=== PATIENT | male | born 1945 | race Caucasian/White ===

== ENCOUNTER 2023-11-27 14:32 | Inpatient (IN) | payer MEDICARE, OTHER ==
[~2023-11-27] VITALS: Ht 188 cm; Wt 98.1 kg
[~2023-11-27 14:32] MED LIST: ALBU0.084 NEB; AMIT100T6 PO; ASPI-498 OR; CALC0.5C PO; CHLO25TA2 PO; CHOL400D PO; CYAN500L4 PO; DILT-11 PO; GABA-339 PO; LOSA-535 PO; MAGN400C3 PO; MESA400T OR; MONT-8 PO; POTA-36 PO; RANI300C7 PO; RANITAB30 PO; ROSU20TA14 PO; TERA2CAP79 PO; [UNRECOGNIZED DRUG - CODE] PO; insulin NPH
[2023-11-27] MEDS: ACETAMINOPHEN 325 MG TAB PO ONE (15:45)
[2023-11-27 15:58] LABS: Basophils # (auto) 0 10 ^3/uL (0-0.2); Basophils % (auto) 0.3 % (0.0-2.0); Eosinophils # (auto) 0.1 10 ^3/uL (0-0.8); Eosinophils % (auto) 1.2 % (0.0-7.0); Hematocrit 34.3 % (41.0-53.0); Hemoglobin 11.4 g/dL (13.5-17.5); Lymphocytes # (auto) 0.2 10 ^3/uL (0.4-5.4); Lymphocytes % (auto) 2.4 % (10.0-50.0); Mean Corpuscular Hemoglobin 30.7 pg (28.0-32.0); Mean Corpuscular Hgb Conc. 33.2 g/dL (32.0-36.0); Mean Corpuscular Volume 92.6 fL (80.0-100.0); Monocytes # (auto) 0.5 10 ^3/uL (0-1.3); Monocytes % (auto) 6.1 % (0.0-12.0); Neutrophils # (auto) 7.7 10 ^3/uL (1.6-8.6); Red Blood Cells 3.71 10^6/uL (4.5-5.90); Red Cell Distribution Width 17.3 % (11.8-14.3); White Blood Cell 8.5 10^3/uL (4.4-10.8)
[2023-11-27 16:54] LABS: Lactic Acid w/Reflex 2.3 mmol/L (0.4-2.0)
[2023-11-27] MEDS: SODIUM CHLORIDE 0.9% 1,000 ML IV ONE (17:00)
[2023-11-27 17:20] LABS: Albumin 4.2 g/dL (3.2-4.8); Alkaline Phosphatase 47 U/L (46-116); Anion Gap 8 (5-15); Aspartate Aminotransferase < 8 U/L (13-40); BUN/Creatinine Ratio 6.1 (10.0-20.0); Bilirubin, Total 0.7 mg/dL (0.2-1.0); Blood Urea Nitrogen 38 mg/dL (9-23); Calcium 9.5 mg/dL (8.7-10.4); Carbon Dioxide 31 mmol/L (20-30); Chloride 97 mmol/L (98-107); Glucose 90 mg/dL (74-106); Potassium 4.3 mmol/L (3.5-5.1); Sodium 136 mmol/L (136-145); Total Protein 6.8 g/dL (5.7-8.2)
[2023-11-27 17:27] VITALS: RESP 20; O2SAT 97
[2023-11-27 18:04] LABS: Alanine Aminotransferase < 9 U/L (7-40)
[2023-11-27] MEDS: ENOXAPARIN SOD 100 MG/1 ML SYRINGE SC ONE (18:36)
[2023-11-27 18:56] LABS: Urine Bacteria None Seen /hpf (None Seen)
[2023-11-27 19:30] VITALS: RESP 17; O2SAT 96
[2023-11-27 19:31] LABS: Urine Blood Negative /uL (Negative); Urine Clarity Clear (Clear); Urine Color Light-Yellow (Yellow); Urine Protein, UAD 3+ (Negative); Urine Specific Gravity 1.014 (1.001-1.035); Urine Urobilinogen Normal (Negative); Urine WBC 1 /hpf (0 - 3)
[2023-11-27 19:46] LABS: Amphetamine Screen, Urine Neg (NEGATIVE); Barbiturate Scree,Urine Neg (NEGATIVE); Benzodiazephine Screen, Urine Neg (NEGATIVE); Cocaine Screen, Urine Neg (NEGATIVE)
[2023-11-27 19:47] LABS: Cannabinoid Screen, Urine Neg (NEGATIVE); Opiate Scree,Urine Neg (NEGATIVE); Phencyclidine Screen, Urine Neg (NEGATIVE)
[2023-11-27] MEDS: ATORVASTATIN 20 MG TAB PO SCH (22:00)
[2023-11-27] MEDS ORDERED: DEXTROSE (50%) 50ML SYRG IV PRN (22:00)
[2023-11-27] MEDS ORDERED: ALBUTEROL SULF 2.5 MG/0.5ML(0.5%) NEB SOLN NEB PRN (22:00)
[2023-11-27] MEDS ORDERED: MORPHINE SULFATE INJ 2 MG/ml SYRG IV PRN (22:00)
[2023-11-27] MEDS ORDERED: ONDANSETRON HCL 4 MG/2 ML VIAL IV PRN (22:00)
[2023-11-27] MEDS: ACCU-CHEK COMFORT CURVE STRIP VI SCH (22:00)
[2023-11-27] MEDS ORDERED: NITROGLYCERIN 0.4 MG SL TAB SL PRN (22:00)
[2023-11-27] MEDS: InsuLIN REG 1unit/0.01ml Soln (100units/ml) SC SCH (22:00)
[2023-11-27 22:10] VITALS: BP 101/82; PULSE 85; RESP 20; TEMP 100.9; O2SAT 95
[2023-11-28] VITALS (9 sets, daily range): BP systolic 119–120; BP diastolic 60–61; PULSE 56–88; RESP 18–22; TEMP 97.1–97.9; O2SAT 87–98
[2023-11-28 05:18] LABS: Basophils # (auto) 0 10 ^3/uL (0-0.2); Basophils % (auto) 0.3 % (0.0-2.0); Eosinophils # (auto) 0.1 10 ^3/uL (0-0.8); Eosinophils % (auto) 0.9 % (0.0-7.0); Hematocrit 31.3 % (41.0-53.0); Hemoglobin 10.1 g/dL (13.5-17.5); Lymphocytes # (auto) 0.7 10 ^3/uL (0.4-5.4); Lymphocytes % (auto) 8.5 % (10.0-50.0); Mean Corpuscular Hemoglobin 29.9 pg (28.0-32.0); Mean Corpuscular Hgb Conc. 32.2 g/dL (32.0-36.0); Mean Corpuscular Volume 92.9 fL (80.0-100.0); Monocytes # (auto) 0.9 10 ^3/uL (0-1.3); Monocytes % (auto) 11.9 % (0.0-12.0); Neutrophils # (auto) 6.1 10 ^3/uL (1.6-8.6); Neutrophils % (auto) 78.4 % (37.0-80.0); Red Blood Cells 3.37 10^6/uL (4.5-5.90); Red Cell Distribution Width 17.2 % (11.8-14.3); White Blood Cell 7.8 10^3/uL (4.4-10.8)
[2023-11-28 05:30] LABS: Chloride 99 mmol/L (98-107); Potassium 4.6 mmol/L (3.5-5.1); Sodium 136 mmol/L (136-145)
[2023-11-28 05:38] LABS: Glucose 83 mg/dL (74-106)
[2023-11-28 05:39] LABS: Alkaline Phosphatase 42 U/L (46-116); BUN/Creatinine Ratio 6.5 (10.0-20.0); Blood Urea Nitrogen 46 mg/dL (9-23)
[2023-11-28 05:40] LABS: Alanine Aminotransferase 13 U/L (7-40); Albumin 4.1 g/dL (3.2-4.8); Aspartate Aminotransferase 17 U/L (13-40)
[2023-11-28 05:41] LABS: Bilirubin, Total 0.5 mg/dL (0.2-1.0); Total Protein 6.6 g/dL (5.7-8.2)
[2023-11-28 06:53] LABS: Anion Gap 11 (5-15); Carbon Dioxide 26 mmol/L (20-30)
[2023-11-28] MEDS: ASPirin 81 mg TAB PO ONE (09:54)
[2023-11-28] MEDS: CLOPIDOGREL BISULFATE 75 MG TAB PO SCH (09:54)
[2023-11-28] MEDS ORDERED: ASPirin 81 mg TAB PO SCH (10:00)
[2023-11-28 10:18] LABS: Triglycerides 75 mg/dL (< 150)
[2023-11-28 10:19] LABS: LDL Cholesterol 34 mg/dL (< 100)
[2023-11-28 10:20] LABS: HDL Cholesterol 32 mg/dL (40-59)
[2023-11-28 10:21] LABS: Cholesterol 82 mg/dL (< 200)
[2023-11-28 11:21] LABS: Free T4 (Free Thyroxine) 0.83 ng/dL (0.89-1.76)
[2023-11-28 11:22] LABS: Folate (Folic Acid) > 24.00 ng/mL (>5.38)
[2023-11-28] MEDS: cefTRIAXone 1GM/50ML D5W 50 ML IV SCH (18:17)
[2023-11-28] MEDS: DexAMETHasone SOD PHOS 10MG/1ML VIAL INJ IV SCH (20:39)
[2023-11-28 21:52] LABS: INR 1.23 (0.9-1.15); Prothrombin Time 12.8 sec (9.3-11.8)
[2023-11-28] MEDS: ATORVASTATIN 20 MG TAB PO SCH (22:06)
[2023-11-29] VITALS (8 sets, daily range): BP systolic 128–157; BP diastolic 60–81; PULSE 66–82; RESP 15–16; TEMP 97–98; O2SAT 86–100
[2023-11-29] MEDS: SODIUM CHL 0.9% 1000 ML BAG XX ONE (07:00)
[2023-11-29] MEDS: ASPirin 81 mg TAB PO SCH (08:37)
[2023-11-29] MEDS ORDERED: GABA-1250 PO (08:44)
[2023-11-29] MEDS ORDERED: FAMO-12 PO (08:44)
[2023-11-29] MEDS ORDERED: B-CO1TAB24 PO (08:44)
[2023-11-29] MEDS ORDERED: SEVE800T8 PO (08:44)
[2023-11-29] MEDS ORDERED: TAMS0.4C36 PO (08:44)
[2023-11-29] MEDS ORDERED: CLOP75TA70 PO (08:44)
[2023-11-29] MEDS ORDERED: ATOR-47 PO (08:44)
[2023-11-29] MEDS ORDERED: BALS750C6 PO (08:44)
[2023-11-29] MEDS ORDERED: LOSA-534 PO (08:44)
[2023-11-29] MEDS ORDERED: DICL1GEL73 TD (08:47)
[2023-11-29] MEDS ORDERED: FLUT1AER7 IN (08:47)
[2023-11-29] MEDS ORDERED: ALBU2TAB11 PO (08:47)
[2023-11-29] MEDS ORDERED: TIOT17SP IN (08:47)
[2023-11-29 09:35] LABS: Basophils # (auto) 0 10 ^3/uL (0-0.2); Eosinophils # (auto) 0 10 ^3/uL (0-0.8); Hemoglobin 10.2 g/dL (13.5-17.5); Lymphocytes # (auto) 0.7 10 ^3/uL (0.4-5.4); Lymphocytes % (auto) 12.3 % (10.0-50.0); Mean Corpuscular Hemoglobin 29.9 pg (28.0-32.0); Mean Corpuscular Hgb Conc. 31.8 g/dL (32.0-36.0); Mean Corpuscular Volume 94.1 fL (80.0-100.0); Monocytes # (auto) 0.3 10 ^3/uL (0-1.3); Monocytes % (auto) 4.7 % (0.0-12.0); Neutrophils # (auto) 4.4 10 ^3/uL (1.6-8.6); Red Blood Cells 3.41 10^6/uL (4.5-5.90); Red Cell Distribution Width 17.1 % (11.8-14.3); White Blood Cell 5.3 10^3/uL (4.4-10.8)
[2023-11-29 09:53] LABS: Alanine Aminotransferase 16 U/L (7-40); Albumin 4.2 g/dL (3.2-4.8); Alkaline Phosphatase 40 U/L (46-116); Anion Gap 14 (5-15); Aspartate Aminotransferase 32 U/L (13-40); BUN/Creatinine Ratio 7.7 (10.0-20.0); Bilirubin, Total 0.4 mg/dL (0.2-1.0); Calcium 9.7 mg/dL (8.5-10.1); Carbon Dioxide 24 mmol/L (20-30); Chloride 99 mmol/L (98-107); Glucose 147 mg/dL (74-106); Potassium 4.8 mmol/L (3.5-5.1); Sodium 137 mmol/L (136-145); Total Protein 7.1 g/dL (5.7-8.2)
[2023-11-29 10:07] LABS: Blood Urea Nitrogen 66 mg/dL (9-23)
[2023-11-29] MEDS: LORazepam 2MG/ML-1ML VIAL IV ONE (15:15)
[2023-11-29] MEDS: METOPROLOL TARTRATE 25 MG TAB PO SCH (22:00)
[2023-11-29] MEDS: ATORVASTATIN 20 MG TAB PO SCH (22:00)
[2023-11-29] MEDS: LORazepam 2MG/ML-1ML VIAL IV PRN (23:38)
[2023-11-30] VITALS (10 sets, daily range): BP systolic 147–181; BP diastolic 57–77; PULSE 57–83; RESP 19–21; TEMP 97.5–98.3; O2SAT 90–97
[2023-11-30 10:26] LABS: Basophils # (auto) 0 10 ^3/uL (0-0.2); Eosinophils # (auto) 0 10 ^3/uL (0-0.8); Hematocrit 32.2 % (41.0-53.0); Hemoglobin 10.5 g/dL (13.5-17.5); Lymphocytes # (auto) 0.5 10 ^3/uL (0.4-5.4); Lymphocytes % (auto) 7.1 % (10.0-50.0); Mean Corpuscular Hemoglobin 30.1 pg (28.0-32.0); Mean Corpuscular Hgb Conc. 32.5 g/dL (32.0-36.0); Mean Corpuscular Volume 92.7 fL (80.0-100.0); Monocytes # (auto) 0.3 10 ^3/uL (0-1.3); Monocytes % (auto) 4.3 % (0.0-12.0); Neutrophils # (auto) 6.6 10 ^3/uL (1.6-8.6); Neutrophils % (auto) 88.6 % (37.0-80.0); Red Blood Cells 3.48 10^6/uL (4.5-5.90); Red Cell Distribution Width 16.9 % (11.8-14.3); White Blood Cell 7.5 10^3/uL (4.4-10.8)
[2023-11-30] MEDS: LISINOPRIL 5 MG TAB PO SCH ×2 (10:41→13:57)
[2023-11-30 10:43] LABS: Alanine Aminotransferase 19 U/L (7-40); Albumin 3.9 g/dL (3.2-4.8); Alkaline Phosphatase 35 U/L (46-116); Anion Gap 10 (5-15); Aspartate Aminotransferase 27 U/L (13-40); BUN/Creatinine Ratio 8.5 (10.0-20.0); Bilirubin, Total 0.4 mg/dL (0.2-1.0); Calcium 9.6 mg/dL (8.5-10.1); Carbon Dioxide 27 mmol/L (20-30); Chloride 102 mmol/L (98-107); Glucose 142 mg/dL (74-106); Potassium 4.6 mmol/L (3.5-5.1); Sodium 139 mmol/L (136-145); Total Protein 6.6 g/dL (5.7-8.2)
[2023-11-30] MEDS: ACETAMINOPHEN 325 MG TAB PO PRN (10:49)
[2023-11-30 11:02] LABS: Blood Urea Nitrogen 55 mg/dL (9-23)
[2023-11-30] MEDS: LORazepam 2MG/ML-1ML VIAL IV ONE (14:35)
[2023-11-30] MEDS: FUROSEMIDE 100 MG/10ML VIAL IV ONE (16:31)
[2023-12-01] VITALS (9 sets, daily range): BP systolic 143–178; BP diastolic 71–89; PULSE 61–77; RESP 16–20; TEMP 97.6–98.3; O2SAT 94–97
[2023-12-01] MEDS ORDERED: SODIUM CHL 0.9% 1000 ML BAG XX ONE (07:00)
[2023-12-01] MEDS: HALOPERIDOL LACTATE 5 MG/ML INJ VIAL IM PRN (08:43)
[2023-12-01] MEDS ORDERED: HALOPERIDOL LACTATE 5 MG/ML INJ VIAL IV PRN (10:00)
[2023-12-01] MEDS ORDERED: HALOPERIDOL LACTATE 5 MG/ML INJ VIAL IM PRN (10:30)
[2023-12-01 10:51] LABS: Basophils # (auto) 0 10 ^3/uL (0-0.2); Basophils % (auto) 0.1 % (0.0-2.0); Eosinophils # (auto) 0 10 ^3/uL (0-0.8); Hematocrit 34.2 % (41.0-53.0); Lymphocytes # (auto) 0.6 10 ^3/uL (0.4-5.4); Lymphocytes % (auto) 6.1 % (10.0-50.0); Mean Corpuscular Hemoglobin 29.9 pg (28.0-32.0); Mean Corpuscular Hgb Conc. 32.2 g/dL (32.0-36.0); Mean Corpuscular Volume 92.8 fL (80.0-100.0); Monocytes # (auto) 0.5 10 ^3/uL (0-1.3); Monocytes % (auto) 5.2 % (0.0-12.0); Neutrophils # (auto) 8.9 10 ^3/uL (1.6-8.6); Neutrophils % (auto) 88.6 % (37.0-80.0); Nucleated Red Blood Cells % 0.1 %; Red Blood Cells 3.68 10^6/uL (4.5-5.90); Red Cell Distribution Width 17.1 % (11.8-14.3)
[2023-12-01 11:12] LABS: Alanine Aminotransferase 29 U/L (7-40); Albumin 4.3 g/dL (3.2-4.8); Alkaline Phosphatase 43 U/L (46-116); Anion Gap 13 (5-15); Aspartate Aminotransferase 23 U/L (13-40); BUN/Creatinine Ratio 10.2 (10.0-20.0); Bilirubin, Total 0.4 mg/dL (0.2-1.0); Blood Urea Nitrogen 79 mg/dL (9-23); Carbon Dioxide 24 mmol/L (20-30); Chloride 100 mmol/L (98-107); Glucose 153 mg/dL (74-106); Potassium 4.4 mmol/L (3.5-5.1); Sodium 137 mmol/L (136-145)
[2023-12-01 11:13] LABS: Total Protein 7.1 g/dL (5.7-8.2)
[2023-12-01] MEDS: LOSARTAN POTASSIUM 50 MG TAB PO SCH (11:16)
[2023-12-01] MEDS: NICOTINE 21MG/24 HR TOPICAL PATCH TD SCH (13:05)
[2023-12-01] MEDS: AMPICILLIN INJ 1 GM in SODIUM CHL 0.9% 100 ML IV ONE (17:16)
[2023-12-01] MEDS ORDERED: EPOETIN ALFA-EPBX 4,000 UNIT/ML VIAL SC ONE (21:00)
[2023-12-01] MEDS: AMPICILLIN INJ 1 GM in SODIUM CHL 0.9% 100 ML IV SCH (23:15)
[2023-12-02 01:00] VITALS: BP 156/86; PULSE 67; RESP 17; TEMP 97.7; O2SAT 96
[2023-12-02 05:00] VITALS: BP 152/72; PULSE 57; RESP 16; TEMP 97.9; O2SAT 95
[2023-12-02 06:14] LABS: Basophils # (auto) 0 10 ^3/uL (0-0.2); Eosinophils # (auto) 0 10 ^3/uL (0-0.8); Hematocrit 33.6 % (41.0-53.0); Lymphocytes # (auto) 0.8 10 ^3/uL (0.4-5.4); Lymphocytes % (auto) 6.2 % (10.0-50.0); Mean Corpuscular Hemoglobin 30.1 pg (28.0-32.0); Mean Corpuscular Hgb Conc. 32.7 g/dL (32.0-36.0); Monocytes # (auto) 1.1 10 ^3/uL (0-1.3); Monocytes % (auto) 8.6 % (0.0-12.0); Neutrophils # (auto) 11.3 10 ^3/uL (1.6-8.6); Neutrophils % (auto) 85.2 % (37.0-80.0); Red Blood Cells 3.65 10^6/uL (4.5-5.90); White Blood Cell 13.3 10^3/uL (4.4-10.8)
[2023-12-02 06:23] LABS: Alanine Aminotransferase 40 U/L (7-40); Albumin 3.9 g/dL (3.2-4.8); Alkaline Phosphatase 48 U/L (46-116); Anion Gap 12 (5-15); Aspartate Aminotransferase 28 U/L (13-40); BUN/Creatinine Ratio 10.6 (10.0-20.0); Calcium 9.6 mg/dL (8.7-10.4); Carbon Dioxide 25 mmol/L (20-30); Chloride 100 mmol/L (98-107); Glucose 120 mg/dL (74-106); Magnesium 2.4 mg/dL (1.6-2.6); Potassium 4.3 mmol/L (3.5-5.1); Sodium 137 mmol/L (136-145)
[2023-12-02 06:24] LABS: Bilirubin, Total 0.3 mg/dL (0.2-1.0); Phosphorus 6.6 mg/dL (2.4-5.1); Total Protein 6.5 g/dL (5.7-8.2)
[2023-12-02 06:25] LABS: INR 1.13 (0.9-1.15); Partial Thromboplastin Time 25.6 SEC (24.5-34.5); Prothrombin Time 11.9 sec (9.3-11.8)
[2023-12-02] MEDS ORDERED: SODIUM CHL 0.9% 1000 ML BAG XX ONE (07:00)
[2023-12-02 07:02] LABS: Blood Urea Nitrogen 88 mg/dL (9-23)
[2023-12-02 08:00] VITALS: PULSE 58
[2023-12-02 08:36] VITALS: BP 121/58; PULSE 57; RESP 18; TEMP 97.6; O2SAT 97
[2023-12-02 08:48] LABS: Hepatitis B Surface Antigen Negative (Negative)
[2023-12-02 09:09] LABS: Hepatitis A Ab IgM Negative
[2023-12-02 09:10] LABS: Hepatitis B Core IgM Negative; Hepatitis C Antibody Negative (Negative)
[2023-12-02] MEDS: FUROSEMIDE 20 MG/2 ML VIAL IV SCH (09:51)
[2023-12-02] MEDS ORDERED: NICOTINE 21MG/24 HR TOPICAL PATCH TD SCH (10:00)
[2023-12-02] MEDS: hydrALAZINE HCL 20 MG/ML VL IV PRN (11:58)
[2023-12-02 12:00] VITALS: BP 151/65; PULSE 56; RESP 18; TEMP 97.8; O2SAT 95
[2023-12-02 15:20] VITALS: O2SAT 95
== END 2023-12-02 16:58 | disposition left against medical advice (07) | DRG 97 ==
LOC: EDBD 14:32 → ER 14:32 → TELE 21:56 → TELE-E-ADS 11-28 15:14 → TELE-CENTR 11-28 16:15
PROVIDERS: ADMIT Internal Medicine; ATTEND Internal Medicine
PROC: 5A1D70Z Performance of Urinary Filtration, Intermittent, Less than 6 Hours Per Day (ICD-10-PCS; principal; 2023-11-29)
DX: G03.9 Meningitis, unspecified (principal); G93.41 Metabolic encephalopathy; I63.9 Cerebral infarction, unspecified; I21.A1 Myocardial infarction type 2; N18.6 End stage renal disease; J96.21 Acute and chronic respiratory failure with hypoxia; I50.23 Acute on chronic systolic (congestive) heart failure; I13.2 Hypertensive heart and chronic kidney disease with heart failure and with stage 5 chronic kidney disease, or end stage renal disease; G93.1 Anoxic brain damage, not elsewhere classified; Z99.2 Dependence on renal dialysis; E11.22 Type 2 diabetes mellitus with diabetic chronic kidney disease; D63.1 Anemia in chronic kidney disease; I27.20 Pulmonary hypertension, unspecified; I50.82 Biventricular heart failure; Z53.29 Procedure and treatment not carried out because of patient's decision for other reasons; E78.5 Hyperlipidemia, unspecified; J44.9 Chronic obstructive pulmonary disease, unspecified; I25.10 Atherosclerotic heart disease of native coronary artery without angina pectoris; K21.9 Gastro-esophageal reflux disease without esophagitis; N40.0 Benign prostatic hyperplasia without lower urinary tract symptoms; I44.0 Atrioventricular block, first degree; Z95.1 Presence of aortocoronary bypass graft; Z88.8 Allergy status to other drugs, medicaments and biological substances; Z86.73 Personal history of transient ischemic attack (TIA), and cerebral infarction without residual deficits; Z87.891 Personal history of nicotine dependence; Z79.82 Long term (current) use of aspirin; Z79.899 Other long term (current) drug therapy; Z79.02 Long term (current) use of antithrombotics/antiplatelets; Z91.199 Patient's noncompliance with other medical treatment and regimen due to unspecified reason; Z82.49 Family history of ischemic heart disease and other diseases of the circulatory system; Z95.5 Presence of coronary angioplasty implant and graft
CPT/HCPCS: 36415; 36600; 70450; 71045; 76705; 80053; 80061; 80074; 80307; 80320; 81001; 82140; 82270; 82607; 82746; 82805; 82962; 83036; 83605; 83735; 83880; 84100; 84439; 84443; 84484; 85025; 85610; 85730; 86141; 87040; 87081; 87086; 87088; 87186; 90935; 93005; 93306; 96360; 96372; 97163; 99291; G0378; J1100; J1642; J1815

== ENCOUNTER 2024-06-23 07:26 | Inpatient (IN) | payer OTHER, MEDICARE ==
[~2024-06-23] VITALS: Ht 188 cm; Wt 99.1 kg
[~2024-06-23 07:26] MED LIST changes: +ALBU2TAB11 PO; +ATOR-47 PO; +B-CO1TAB24 PO; +BALS750C6 PO; +CLOP75TA70 PO; +DICL1GEL73 TD; +FAMO-12 PO; +FLUT1AER7 IN; +GABA-1250 PO; +LOSA-534 PO; +SEVE800T8 PO; +TAMS0.4C39 PO; +TIOT17SP IN
--- NOTE | 2024-06-23 07:41 | ED.PDOC ---
History of Present Illness HPI Comments 79-year-old male presents with a chief complaint of SOB x 0400 with associated generalized weakness. Patient states that he normally is on 2L of home oxygen, but woke up at 0400 this morning and was weak and SOB. Patient mentions that he noticed that his oxygen hose was disconnected and he does not know for how long it was. Patient is bradycardic at 42 BPM and hypotensive at 73/48. Patient is normally on 2L and is currently sating at 93% on 2L. No other symptoms or modifying factors present at this time. Chief Complaint: Low Blood Pressure Time Seen by MD: 07:32 Primary Care Provider: UNKNOWN Reviewed Notes: Medications, Allergies Allergies: Coded Allergies: Atenolol (Unverified Allergy, Severe, 10/22/14) Benzonatate (Unverified Allergy, Severe, 10/22/14) Fosinopril (Unverified Allergy, Severe, 10/22/14) Home Meds Reported Medications Diclofenac Sodium (Topical) (Diclofenac Sodium) 1 % Gel, 1 % TD, GEL 11/29/23 Albuterol Sulfate (Albuterol Sulfate) 2 Mg Tab, 2 MG PO Q6HP PRN for SHORTNESS OF BREATH, MG 11/29/23 Tiotropium Brooks Monohydrate (Spiriva Respimat) 2.5 Mcg/Act Spr, 2.5 MCG IN, SPRAY 11/29/23 Fluticasone-Salmeterol (Wixela Inhub 500-50 Mcg/Dose) 1 Aer Aer, 1 AER IN, AER 11/29/23 Gabapentin (Gabapentin) 300 Mg Cap, 300 MG PO DAILY for 30 Days, MG 11/29/23 B-Complex W/ C & Folic Acid (Renal Vitamin 0.8 mg) 1 Tab Tab, 1 TAB PO HS, TAB 11/29/23 Clopidogrel Bisulfate (CLOPIDOGREL) 75 Mg Tab, 75 MG PO DAILY for 30 Days, MG 11/29/23 Tamsulosin Hcl (Tamsulosin Hcl) 0.4 Mg Cap, 0.4 MG PO BID for 30 Days, MG 11/29/23 Sevelamer Carbonate (Renvela) 800 Mg Tab, 1600 MG PO TIDWMEALS, TAB 11/29/23 Losartan Potassium (Losartan Potassium) 50 Mg Tab, 50 MG PO DAILY for 30 Days, MG 11/29/23 Atorvastatin Calcium (ATORVASTATIN CALCIUM) 80 Mg Tab, 1 TAB PO DAILY, #30 TAB 5 Refills 11/29/23 Famotidine (Famotidine) 20 Mg Tab, 10 MG PO HS for 30 Days, MG 11/29/23 Balsalazide Disodium (Balsalazide Disodium) 750 Mg Cap, 750 MG PO BID, CAP 11/29/23 Albuterol Sulfate (Albuterol Sulfate) 0.083 % Neb, 1 VIAL NEB Q4HPRN, VIAL 10/22/14 Hydrocodone-Acetaminophen (Hydrocodone/Acetaminophen) 1 Tab Tab, 1 TAB PO TID PRN for pain, TAB 10/22/14 Amitriptyline Hcl (Amitriptyline Hcl) 100 Mg Tab, 100 MG PO QPM, TAB 10/22/14 Rosuvastatin Calcium (Crestor) 20 Mg Tab, 1 TAB PO DAILY, TAB 10/22/14 Montelukast Sodium (MONTELUKAST SODIUM) 10 Mg Tab, 1 TAB PO DAILY, TAB 10/22/14 Terazosin Hcl (Terazosin Hcl) 2 Mg Cap, 1 CAP PO QPM, CAP 10/22/14 Aspirin (ASPIRIN 81) 81 Mg Tab, 81 MG OR DAILY, TAB 10/22/14 Mesalamine (ASACOL) 400 Mg Tab, 800 MG OR TID, TAB 10/22/14 Gabapentin (Gabapentin) 600 Mg Tab, 1 TAB PO TID, TAB 10/22/14 Cholecalciferol (VITAMIN D) 400 Unit Boni, 1000 UNIT PO DAILY, BONI 10/22/14 Magnesium Oxide (Mg Supplement (MAGNESIUM) 400 Mg Cap, 400 MG PO DAILY, CAP 10/22/14 Potassium Chloride (POTASSIUM CHLORIDE CR) 10 Meq Tb, 1 TAB PO DAILY, TAB 10/22/14 Cyanocobalamin (Vitamin B 12) 500 Mcg Gavin, 1000 MCG PO EOD, GAVIN 10/22/14 Calcitriol (Calcitriol) 0.5 Mcg Cap, 1 CAP PO DAILY, CAP 10/22/14 Chlorthalidone (Chlorthalidone) 25 Mg Tab, 25 MG PO QAM, TAB 10/22/14 Ranitidine Hcl (Ranitidine Hcl) 300 Mg Cap, 1 CAP PO DAILY, CAP 10/22/14 Ranitidine Hcl (Ranitidine Acid Ball Warper Tender) Ar 75MG Tab, 1 75MG PO, TAB 10/22/14 Diltiazem Hcl (Diltiazem Cd) 300 Mg Cap, 300 MG PO QAM, CAP 10/22/14 Losartan Potassium (Losartan Potassium) 100 Mg Tab, 1 TAB PO DAILY, TAB 10/22/14 [insulin NPH] No Conflict Check, 28 UNITS QPM 10/22/14 [insulin NPH] No Conflict Check, 116 UNIT QAM 10/22/14 Information Source: Patient, Emergency Med Personnel Mode of Arrival: EMS Severity: Moderate Timing: Hours Duration: Since onset Prehospital treatment: Oxygen Past Medical History PAST MEDICAL HISTORY: CAD, CHF, COPD, DM, GERD, HTN Surgical History: CABG Family History Family History: No family hx of HTN Social History Smoker: Quit Greater Than 1 Year, Cigarettes Alcohol: Rarely Drugs: Denies Drug Use Lives In: Home Constitutional: reports: weakness; denies: chills, diaphoresis, fatigue, fever, malaise, sweats, others EENTM: denies: blurred vision, double vision, ear bleeding, ear discharge, ear drainage, ear pain, ear ringing, eye pain, eye redness, hearing loss, mouth pain, mouth swelling, nasal discharge, nose bleeding, nose congestion, nose pain, photophobia, tearing, throat pain, throat swelling, voice changes, others Respiratory: reports: shortness of breath; denies: cough, hemoptysis, ortho pnea, SOB at rest, SOB with excertion, stridor, wheezing, others Cardiovascular: denies: chest pain, dizzy spells, diaphoresis, Dyspnea on exertion, edema, irregular heart beat, left arm pain, lightheadedness, palpitations, PND, syncope, others Gastrointestinal: denies: abdomen distended, abdominal pain, blood streaked bowels, constipated, diarrhea, dysphagia, difficulty swallowing, hematemesis, melena, nausea, poor appetite, poor fluid intake, rectal bleeding, rectal pain, vomiting, others Genitourinary: denies: burning, dysuria, flank pain, frequency, hematuria, inc ontinence, penile discharge, penile sore, pain, testicle pain, testicle swelling, urgency, others Neurological: denies: dizziness, fainting, headache, left sided numbness, left sided weakness, numbness, paresthesia, pre-existing deficit, right sided numbness, right sided weakness, seizure, speech problems, tingling, tremors, weakness, others Musculoskeletal: denies: back pain, gout, joint pain, joint swelling, muscle pain, muscle stiffness, neck pain, others Integumetry: denies: bruises, change in color, change in hair/nails, dryness, laceration, lesions, lumps, rash, wounds, others Allergic/Immunocompromised: denies: Difficulty Healing, Frequent Infections, Hives, Itching, others Hematologic/Lymphatic: denies: anemia, blood clots, easy bleeding, easy bruising, swollen glands, others Endocrine: denies: excessive hunger, excessive sweating, excessive thirst, excessive urination, flushing, intolerance to cold, intolerance to heat, unexplained weight gain, unexplained weight loss, others Psychiatric: denies: anxiety, bipolar disorder, depression, hopeless, panic disorder, schizophrenia, sleepless, suicidal, others All Other Systems: Reviewed and Negative Physical Exam General Appearance: No Apparent Distress, Normal HEENT: Normal ENT Inspection, Pharynx Normal, TMs Normal Neck: Full Range of Motion, Non-Tender, Normal, Normal Inspection Respiratory: Chest Non-Tender, Lungs Clear, No Accessory Muscle Use, No Respiratory Distress, Normal Breath Sounds Cardiovascular: No Edema, No JVD, No Murmur, No Gallop, Normal Peripheral Pulses, Regular Rate/Rhythm Breast Exam: Deferred Gastrointestinal: No Organomegaly, Non Tender, No Pulsatile Mass, Normal Bowel Sounds, Soft Genitalia: Deferred Pelvic: Deferred Rectal: Deferred Extremities: No calf tenderness, Normal capillary refill, Normal inspection, Normal range of motion, Non-tender, No pedal edema Musculoskeletal : Apperance: Normal Neurologic: Alert, sleep lab technician II-XII nml as Tested, No Motor Deficits, Normal Affect, Normal Mood, No Sensory Deficits Cerebellar Function: Normal Reflexes: Normal Skin: Dry, Normal Color, Warm Lymphatic: No Adenopathy Was a procedure done? Was a procedure done?: No Differential Dx Considerations may include: CHF exacerbation, COPD exacerbation, volume overload, electrolyte abnormalities X-Ray, Labs, Meds, VS Vital Signs Date Time Temp Pulse Resp B/P (MAP) Pulse Ox O2 Delivery O2 Flow Rate FiO2 06/23/24 10:00 98.3 99 16 91/41 (58) 99 98.3 06/23/24 09:13 40 06/23/24 08:00 43 12 81/39 (53) 100 06/23/24 08:00 42 06/23/24 07:50 43 16 96 Nasal Cannula* 2 28 06/23/24 07:50 43 16 75/39 (51) 96 06/23/24 07:30 87 06/23/24 07:30 98.9 42 18 73/48 (56) 93 Lab Test 06/23/24 09:16 06/23/24 08:00 Range/Units Troponin I High Sensitivity 1852 *H 1716 *H </=54 ng/L White Blood Count 7.1 4.4-10.8 10^3/uL Red Blood Count 2.95 L 4.5-5.90 10^6/uL Hemoglobin 9.8 L 13.5-17.5 g/dL Hematocrit 30.3 L 41.0-53.0 % Mean Corpuscular Volume 102.9 H 80.0-100.0 fL Mean Corpuscular Hemoglobin 33.2 H 28.0-32.0 pg Mean Corpuscular Hemoglobin Concent 32.3 32.0-36.0 g/dL Red Cell Distribution Width 19.1 H 11.8-14.3 % Platelet Count 161 140-450 10^3/uL Mean Platelet Volume 7.2 6.9-10.8 fL Neutrophils (%) (Auto) 80.6 H 37.0-80.0 % Lymphocytes (%) (Auto) 10.6 10.0-50.0 % Monocytes (%) (Auto) 7.2 0.0-12.0 % Eosinophils (%) (Auto) 1.1 0.0-7.0 % Basophils (%) (Auto) 0.5 0.0-2.0 % Neutrophils # (Auto) 5.8 1.6-8.6 10 ^3/uL Lymphocytes # (Auto) 0.8 0.4-5.4 10 ^3/uL Monocytes # (Auto) 0.5 0-1.3 10 ^3/uL Eosinophils # (Auto) 0.1 0-0.8 10 ^3/uL Basophils # (Auto) 0 0-0.2 10 ^3/uL Nucleated Red Blood Cells 0.1 % Sodium Level 138 136-145 mmol/L Potassium Level 5.1 3.5-5.1 mmol/L Chloride Level 97 L 98-107 mmol/L Carbon Dioxide Level 30 20-31 mmol/L Anion Gap 11 5-15 Blood Urea Nitrogen 36 H 9-23 mg/dL Creatinine 5.86 H 0.700-1.30 mg/dL Glomerular Filtration Rate Calc 9 >90 mL/min BUN/Creatinine Ratio 6.1 L 10.0-20.0 Serum Glucose 162 H 74-106 mg/dL Calcium Level 10.8 H 8.7-10.4 mg/dL Phosphorus Level 7.1 H 2.4-5.1 mg/dL Magnesium Level 2.5 1.6-2.6 mg/dL Current Medications Medications (Trade) Dose Ordered Sig/Ciara Route Start Time Stop Time Status Last Admin Aspirin 324 mg ONCE ONCE PO 06/23/24 09:30 06/23/24 09:36 DC 06/23/24 09:43 Time of 1ST Reevaluation: 08:02 Reevaluation 1ST: Unchanged Patient Education/Counseling: Diagnosis, Treatment, Prognosis Family Education/Counseling: No Family Present Departure 1 Departure Time of Disposition: 11:10 (Patient presents with acute shortness of breath concerning for possible COPD exacerbation versus ACS versus volume overload. Chest x-ray on my review is concerning for volume overload. Troponin was elevated. CBC was unremarkable. We will admit patient for further workup) Impression: Primary Impression: Systolic and diastolic CHF, acute on chronic Additional Impressions: Volume overload Qualified Codes: E87.70 - Fluid overload, unspecified COPD (chronic obstructive pulmonary disease) Qualified Codes: J44.1 - Chronic obstructive pulmonary disease with (acute) exacerbation Disposition: ADMITTED INPATIENT Admit to: Med Surg Condition: Serious Critical Care Note Critical Care Time?: Yes Critical care comment: Acute respiratory distress Authorized and Performed by: Carey Holm MD Total critical care time: Approximately 39 minutes Due to a high probability of clinically significant, life threatening deterioration, the patient required my highest level of preparedness to intervene emergently and I personally spent this critical care time directly and personally managing the patient. This critical care time included obtaining a history; examining the patient; pulse oximetry; ordering and review of studies; arranging urgent treatment with development of a management plan; evaluation of patient's response to treatment; frequent reassessment; and, discussions with other providers. This critical care time was performed to assess and manage the high probability of imminent, life-threatening deterioration that could result in multi-organ failure. It was exclusive of separately billable procedures and treating other patients and teaching time. Please see my other sections and the rest of the note for further information on patient assessment and treatment. Stability Stability form required: No I personally scribed for CAREY HOLM MD ([email or web address]) on 06/23/24 at 07:41. Electronically submitted by Rocky Arroyo ([email or web address]). CAREY HOLM MD Jun 23, 2024 07:41
[2024-06-23 07:50] VITALS: PULSE 43; RESP 16; O2SAT 96
[2024-06-23 08:28] LABS: Basophils # (auto) 0 10 ^3/uL (0-0.2); Eosinophils # (auto) 0.1 10 ^3/uL (0-0.8); Hemoglobin 9.8 g/dL (13.5-17.5)
--- NOTE | 2024-06-23 08:28 | DVH ---
EXAM: XY CHEST PORTABLE Indication: sob Technique: Single frontal view of the chest was obtained Comparison: XY CHEST XRAY 1 VIEW on DOS: 11/27/23, CHEST PORTABLE on DOS: 02/18/22, CXRP on DOS: 2 FINDINGS: Lines and Tubes: None Lungs: Pulmonary vascular congestion. Pleura: No effusion. No pneumothorax. Cardiomediastinal contours: Cardiomegaly. Bones: No acute osseous abnormality. IMPRESSION: Cardiomegaly with pulmonary vascular congestion.
[2024-06-23 08:31] LABS: Anion Gap 11 (5-15); Carbon Dioxide 30 mmol/L (20-31); Chloride 97 mmol/L (98-107); Potassium 5.1 mmol/L (3.5-5.1); Sodium 138 mmol/L (136-145)
[2024-06-23 08:32] LABS: Basophils % (auto) 0.5 % (0.0-2.0); Calcium 10.8 mg/dL (8.7-10.4); Eosinophils % (auto) 1.1 % (0.0-7.0); Hematocrit 30.3 % (41.0-53.0); Lymphocytes # (auto) 0.8 10 ^3/uL (0.4-5.4); Lymphocytes % (auto) 10.6 % (10.0-50.0); Mean Corpuscular Hemoglobin 33.2 pg (28.0-32.0); Mean Corpuscular Hgb Conc. 32.3 g/dL (32.0-36.0); Mean Corpuscular Volume 102.9 fL (80.0-100.0); Monocytes # (auto) 0.5 10 ^3/uL (0-1.3); Monocytes % (auto) 7.2 % (0.0-12.0); Neutrophils # (auto) 5.8 10 ^3/uL (1.6-8.6); Neutrophils % (auto) 80.6 % (37.0-80.0); Nucleated Red Blood Cells % 0.1 %; Platelet Count (auto) 161 10^3/uL (140-450); Red Blood Cells 2.95 10^6/uL (4.5-5.90); Red Cell Distribution Width 19.1 % (11.8-14.3); White Blood Cell 7.1 10^3/uL (4.4-10.8)
[2024-06-23 08:37] LABS: BUN/Creatinine Ratio 6.1 (10.0-20.0); Blood Urea Nitrogen 36 mg/dL (9-23); Glucose 162 mg/dL (74-106); Magnesium 2.5 mg/dL (1.6-2.6)
[2024-06-23 08:39] LABS: Phosphorus 7.1 mg/dL (2.4-5.1)
[2024-06-23] MEDS: ASPirin 81 mg TAB PO ONE (09:43)
--- NOTE | 2024-06-23 10:38 | ECG ---
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
[2024-06-23] MEDS: IPRATROPIUM BROM 0.5 MG/2.5ML INH SOL NEB ONE (11:39)
[2024-06-23] MEDS: ALBUTEROL SULF 2.5 MG/0.5ML(0.5%) NEB SOLN NEB ONE (11:40)
[2024-06-23] MEDS ORDERED: ACETAMINOPHEN 325 MG TAB PO PRN (11:45)
[2024-06-23] MEDS ORDERED: MORPHINE SULFATE INJ 2 MG/ml SYRG IV PRN (11:45)
[2024-06-23] MEDS ORDERED: NITROGLYCERIN 0.4 MG SL TAB SL PRN (11:45)
[2024-06-23] MEDS ORDERED: DOCUSATE SOD 100 MG CAP PO PRN (11:45)
[2024-06-23] MEDS ORDERED: ONDANSETRON HCL 4 MG/2 ML VIAL IV PRN (11:45)
[2024-06-23] MEDS: AZITHROMYCIN 250 MG TAB PO ONE (11:46)
--- NOTE | 2024-06-23 12:03 | DVHHP2 ---
History of Present Illness Reason for Visit: Low blood pressure History of Present Illness Delfino Reyes is a 79 YOM with pmHx of HTN, COPD, CAD, CHF, DM, GERD, Afib, ESRD on HD M// at [facility] and CABG who presents to the ED with low blood pressure, shortness of breath, and weakness x 1 day. Patient reports that he is on home oxygen of 2LNC and when his (Brittany) took his BP it was low this morning 80/51 with a pulse of 44. She states that his baseline is SBPs 150s and pulse of 70s. She states his O2 at home was functioning and on. Patient reports he fell about 1 month ago when he was attempting to get up from his recliner and grabbed his FWW but fell to his right side and hit the back of his head on the floor. Negative LOC and was hospitalized at [facility]. Patient's reported that CT head and chest were all negative. Patient's reported physical therapy comes to their home twice a week for treatment. Patient denies chest pain, dizziness, fever, and chills. Cardiovascular: CAD, CHF, HTN Pulmonary: COPD GI: GERD Renal/: Chronic renal insuff Endocrine: Diabetes Past Surgical History: CABG Smoke: Quit ALCOHOL: none Drugs: None Lives: with Family Domestic Violence: Neg Review of Systems Constitutional: No: Fever, Chills, Sweats, Weakness, Malaise, Other Eyes: No: Pain, Vision change, Conjunctivae inflammation, Eyelid inflammation, Other, Redness ENT: No: Ear pain, Ear discharge, Nose pain, Nose discharge, Nose congestion, Mouth pain, Mouth swelling, Throat pain, Throat swelling, Other Respiratory: Shortness of breath; No: Cough, Dry, SOB with excertion, Wheezing, Hemoptysis, Pleuritic Pain, Sputum, Wheezing, Other Cardiovascular: No: Chest Pain, Palpitations, Orthopnea, Paroxysmal Noc. Dyspnea, Edema, Lt Headedness, Other Gastrointestinal: No: Nausea, Vomiting, Abdominal Pain, Diarrhea, Constipation, Melena, Hematochezia, Other Genitourinary: No Dysuria, No Frequency, No Incontinence, No Hematuria, No Retention, No Other Musculoskeletal: No: other, neck pain, shoulder pain, arm pain, back pain, hand pain, leg pain, foot pain Skin: No: Rash, Lesions, Jaundice, Bruising, Other Neurological: Weakness; No: Numbness, Incoordination, Change in speech, Confusion, Seizures, Other Allergies: Coded Allergies: Atenolol (Unverified Allergy, Severe, 10/22/14) Benzonatate (Unverified Allergy, Severe, 10/22/14) Fosinopril (Unverified Allergy, Severe, 10/22/14) Exam Vital Signs Vital Signs Date Time Temp Pulse Resp B/P (MAP) Pulse Ox O2 Delivery O2 Flow Rate FiO2 06/23/24 10:00 98.3 99 16 91/41 (58) 99 98.3 06/23/24 07:50 Nasal Cannula* 2 28 General Appearance: Oriented X3, Cooperative HEENT: PERRLA Respiratory: Clear to auscultation, Normal air movement Cardiovascular: Normal S1, Normal S2, No murmurs Abdominal: Normal bowel sounds, Soft, No tenderness Extremities: No clubbing, No cyanosis, No edema, Normal pulses Skin: No rashes, No breakdown, No significant lesion Neuro: Normal speech, Normal tone, Sensation intact Psych/Mental Status: Mental status NL Labs/Xrays Labs Test 06/23/24 11:15 06/23/24 08:00 Range/Units White Blood Count 7.1 4.4-10.8 10^3/uL Red Blood Count 2.95 L 4.5-5.90 10^6/uL Hemoglobin 9.8 L 13.5-17.5 g/dL Hematocrit 30.3 L 41.0-53.0 % Mean Corpuscular Volume 102.9 H 80.0-100.0 fL Mean Corpuscular Hemoglobin 33.2 H 28.0-32.0 pg Mean Corpuscular Hemoglobin Concent 32.3 32.0-36.0 g/dL Red Cell Distribution Width 19.1 H 11.8-14.3 % Platelet Count 161 140-450 10^3/uL Mean Platelet Volume 7.2 6.9-10.8 fL Neutrophils (%) (Auto) 80.6 H 37.0-80.0 % Lymphocytes (%) (Auto) 10.6 10.0-50.0 % Monocytes (%) (Auto) 7.2 0.0-12.0 % Eosinophils (%) (Auto) 1.1 0.0-7.0 % Basophils (%) (Auto) 0.5 0.0-2.0 % Neutrophils # (Auto) 5.8 1.6-8.6 10 ^3/uL Lymphocytes # (Auto) 0.8 0.4-5.4 10 ^3/uL Monocytes # (Auto) 0.5 0-1.3 10 ^3/uL Eosinophils # (Auto) 0.1 0-0.8 10 ^3/uL Basophils # (Auto) 0 0-0.2 10 ^3/uL Nucleated Red Blood Cells 0.1 % Sodium Level 138 136-145 mmol/L Potassium Level 5.1 3.5-5.1 mmol/L Chloride Level 97 L 98-107 mmol/L Carbon Dioxide Level 30 20-31 mmol/L Anion Gap 11 5-15 Blood Urea Nitrogen 36 H 9-23 mg/dL Creatinine 5.86 H 0.700-1.30 mg/dL Glomerular Filtration Rate Calc 9 >90 mL/min BUN/Creatinine Ratio 6.1 L 10.0-20.0 Serum Glucose 162 H 74-106 mg/dL Calcium Level 10.8 H 8.7-10.4 mg/dL Phosphorus Level 7.1 H 2.4-5.1 mg/dL Magnesium Level 2.5 1.6-2.6 mg/dL EXAM: XY CHEST PORTABLE FINDINGS: Lines and Tubes: None Lungs: Pulmonary vascular congestion. Pleura: No effusion. No pneumothorax. Cardiomediastinal contours: Cardiomegaly. Bones: No acute osseous abnormality. IMPRESSION: Cardiomegaly with pulmonary vascular congestion. Assessment/Plan Assessment/Plan Assessment: R/O ACS likely NSTEMI Type 2 Cardiomegaly Acute on chronic kidney failure Acute on chronic respiratory failure Acute systolic CHF exacerbation Hx of COPD on home O2 ESRD on HD M/W/F CAD CHF DM GERD HTN Plan: Admit to tele Nephrology consult Cardiology consult Cardiac/Renal diet pain management ACS protocol Trend Troponins Monitor labs Monitor BP and rate ISS and accuchecks AM labs recommend PT/OT when appropriate Home medications reconciled Discussed plan of care with patient, patient's spouse and nurse Plan discussed with: Patient My Orders Orders - ARCELIA TRUONG PERSON INVESTIGATOR Procedure Category Date Status Time *Dr. [facility] CONS 06/23/24 Transmitted -[place] 11:38 * Cardiology Consult CONS 06/23/24 Transmitted 11:38 Admit ADMIT 06/23/24 Transmitted 11:38 Code Status CODE 06/23/24 Transmitted 11:38 Sodium Chloride Lock PHA 06/23/24 Transmitted (Saline Lock Ns) 14:00 Hydrocodone-Acet PHA 06/23/24 Transmitted 5/325mg Tab ([place] 11:45 Ondansetron Hcl PHA 06/23/24 Transmitted (Zofran) 11:45 Docusate Sodium PHA 06/23/24 Transmitted Capsule (Colace 11:45 Fall Risk Precautions RUTH 06/23/[address] 11:38 Complete Blood Count LAB 06/24/24 Verified 04:00 Comprehensive LAB 06/24/24 Verified Metabolic Panel 04:00 Cardiac DIET 06/23/24 Transmitted Diet-2gna,Lofat,Lochol Lunch Condition: Serious RUTH 06/23/24 Transmitted 11:38 Acetaminophen Tablet PHA 06/23/24 Transmitted (Tylenol Tablet) 11:45 Morphine Sulfate PHA 06/23/24 Transmitted Injection 11:45 Nitroglycerin PHA 06/23/24 Transmitted Sublingual (Ntrostat 11:45 Morphine Sulfate PHA 06/23/24 Transmitted Injection 11:45 Notify Of Changes [facility] 06/23/24 Transmitted From Base 11:38 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
--- NOTE | 2024-06-23 13:21 | ECG ---
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
[2024-06-23 13:22] VITALS: BP 108/55; PULSE 57; RESP 16; TEMP 97.2; O2SAT 94
[2024-06-23 13:30] VITALS: BP 108/55; PULSE 57; RESP 16; TEMP 97.2; O2SAT 94
[2024-06-23] MEDS: MORPHINE SULFATE INJ 2 MG/ml SYRG IV PRN (13:57)
[2024-06-23] MEDS: ENOXAPARIN SOD 100 MG/1 ML SYRINGE SC SCH (13:58)
[2024-06-23] MEDS ORDERED: ALBUTEROL SULFATE 2 MG TABLET PO PRN (14:00)
[2024-06-23] MEDS ORDERED: DEXTROSE (50%) 50ML SYRG IV PRN (14:00)
[2024-06-23] MEDS: SODIUM CHLOR 0.9% PF (SALINE LOCK) 10ML VIAL/SYR IV SCH (14:04)
--- NOTE | 2024-06-23 14:21 | DVHINCON2 ---
Date Seen: Jun 23, 2024 Referring Physician JERRY Lemus Reason for Consultation NSTEMI History of Present Illness This is an 79-year-old man who presented to the emergency room with a chief complaint of generalized weakness since last night. Patient complains of progressive generalized weakness associated with shortness of breath, dizziness, and some nausea. The patient endorses some of his symptoms to running out of oxygen at 2LPM for approximately two hours when he noticed his O2 was disconnected. At time of arrival he was found with a systolic blood pressure in the 70s mmHg and a HR in the 40s bpm. He underwent multiple twelve-lead electrocardiograms revealing sick sinus syndrome fluctuating between atrial fibrillation at a controlled rate and sinus bradycardia with a heart rate of 40 bpm. There is global ischemia present on twelve-lead electrocardiograms. Troponin levels are trending up with latest > 1900 ng/L. Denies chest pain, palpitations, or diaphoresis. Per over the phone, Peace Reyes, the patient underwent a cardiac catheterization and coronary angiogram without catheter based intervention given non-progressive coronary artery disease at [facility] on 09/2023. Significant medical history includes coronary artery disease including a double coronary artery bypass graft in 1999 status post a PCI including stents and with current dual antiplatelet therapy, hypertension, dyslipidemia, COPD, ESRD on HD, Hx of CVA, BPH, and obesity. Past Medical History Past medical history reviewed. No other significant than mentioned above. Past Surgical History Left forearm AV fistula Double vessel CABG in 1999 Unspecified PCI including 3 JAMAAL Family History: Patient reports no known family medical history. Family History Family history reviewed. Social History Denies the use of illicit drugs, alcohol, or tobacco use. Allergies: Coded Allergies: Atenolol (Unverified Allergy, Severe, 10/22/14) Benzonatate (Unverified Allergy, Severe, 10/22/14) Fosinopril (Unverified Allergy, Severe, 10/22/14) Home Meds Reported Medications Diclofenac Sodium (Topical) (Diclofenac Sodium) 1 % Gel, 1 % TD, GEL 11/29/23 Albuterol Sulfate (Albuterol Sulfate) 2 Mg Tab, 2 MG PO Q6HP PRN for SHORTNESS OF BREATH, MG 11/29/23 Tiotropium [place] Monohydrate (Spiriva Respimat) 2.5 Mcg/Act Spr, 2.5 MCG IN, SPRAY 11/29/23 Fluticasone-Salmeterol (Wixela Inhub 500-50 Mcg/Dose) 1 Aer Aer, 1 AER IN, AER 11/29/23 Gabapentin (Gabapentin) 300 Mg Cap, 300 MG PO DAILY for 30 Days, MG 11/29/23 B-Complex W/ C & Folic Acid (Renal Vitamin 0.8 mg) 1 Tab Tab, 1 TAB PO HS, TAB 11/29/23 Clopidogrel Bisulfate (CLOPIDOGREL) 75 Mg Tab, 75 MG PO DAILY for 30 Days, MG 11/29/23 Tamsulosin Hcl (Tamsulosin Hcl) 0.4 Mg Cap, 0.4 MG PO BID for 30 Days, MG 11/29/23 Sevelamer Carbonate (Renvela) 800 Mg Tab, 1600 MG PO TIDWMEALS, TAB 11/29/23 Losartan Potassium (Losartan Potassium) 50 Mg Tab, 50 MG PO DAILY for 30 Days, MG 11/29/23 Atorvastatin Calcium (ATORVASTATIN CALCIUM) 80 Mg Tab, 1 TAB PO DAILY, #30 TAB 5 Refills 11/29/23 Famotidine (Famotidine) 20 Mg Tab, 10 MG PO HS for 30 Days, MG 11/29/23 Balsalazide Disodium (Balsalazide Disodium) 750 Mg Cap, 750 MG PO BID, CAP 11/29/23 Albuterol Sulfate (Albuterol Sulfate) 0.083 % Neb, 1 VIAL NEB Q4HPRN, VIAL 10/22/14 Hydrocodone-Acetaminophen (Hydrocodone/Acetaminophen) 1 Tab Tab, 1 TAB PO TID PRN for pain, TAB 10/22/14 Amitriptyline Hcl (Amitriptyline Hcl) 100 Mg Tab, 100 MG PO QPM, TAB 10/22/14 Rosuvastatin Calcium (Crestor) 20 Mg Tab, 1 TAB PO DAILY, TAB 10/22/14 Montelukast Sodium (MONTELUKAST SODIUM) 10 Mg Tab, 1 TAB PO DAILY, TAB 10/22/14 Terazosin Hcl (Terazosin Hcl) 2 Mg Cap, 1 CAP PO QPM, CAP 10/22/14 Aspirin (ASPIRIN 81) 81 Mg Tab, 81 MG OR DAILY, TAB 10/22/14 Mesalamine (ASACOL) 400 Mg Tab, 800 MG OR TID, TAB 10/22/14 Gabapentin (Gabapentin) 600 Mg Tab, 1 TAB PO TID, TAB 10/22/14 Cholecalciferol (VITAMIN D) 400 Unit Boni, 1000 UNIT PO DAILY, BONI 10/22/14 Magnesium Oxide (Mg Supplement (MAGNESIUM) 400 Mg Cap, 400 MG PO DAILY, CAP 10/22/14 Potassium Chloride (POTASSIUM CHLORIDE CR) 10 Meq Tb, 1 TAB PO DAILY, TAB 10/22/14 Cyanocobalamin (Vitamin B 12) 500 Mcg Gavin, 1000 MCG PO EOD, GAVIN 10/22/14 Calcitriol (Calcitriol) 0.5 Mcg Cap, 1 CAP PO DAILY, CAP 10/22/14 Chlorthalidone (Chlorthalidone) 25 Mg Tab, 25 MG PO QAM, TAB 10/22/14 Ranitidine Hcl (Ranitidine Hcl) 300 Mg Cap, 1 CAP PO DAILY, CAP 10/22/14 Ranitidine Hcl (Ranitidine Acid [place] [employer]endant) Ar 75MG Tab, 1 75MG PO, TAB 10/22/14 Diltiazem Hcl (Diltiazem Cd) 300 Mg Cap, 300 MG PO QAM, CAP 10/22/14 Losartan Potassium (Losartan Potassium) 100 Mg Tab, 1 TAB PO DAILY, TAB 10/22/14 [insulin NPH] No Conflict Check, 28 UNITS QPM 10/22/14 [insulin NPH] No Conflict Check, 116 UNIT QAM 10/22/14 Home Meds Home medications reviewed. Current Medications Current Medications Medications (Trade) Dose Ordered Sig/Ciara Route PRN Reason Start Time Stop Time Status Last Admin Sodium Chloride (Saline Lock Ns) 10 ml Q8HR IV 06/23/24 14:00 Acetaminophen/ Hydrocodone Bitart ([place] 5/325MG Tab) 1 tab Q4HP PRN PO MODERATE PAIN (4-6 PAIN SCALE) 06/23/24 11:45 Ondansetron HCl (Zofran) 4 mg Q4HP PRN IV NAUSEA / VOMITING 06/23/24 11:45 Docusate Sodium (Colace Capsule) 100 mg BIDPRN PRN PO FOR CONSTIPATION 06/23/24 11:45 Acetaminophen (Tylenol Tablet) 650 mg Q6HP PRN PO PAIN SCALE 1-3 OR TEMP>100.4 06/23/24 11:45 Morphine Sulfate 2 mg Q4HPRN PRN IV SEVERE PAIN (7-10 PAIN SCALE) 06/23/24 11:45 Nitroglycerin (Ntrostat Sublingual) 0.4 mg Q5MINP PRN SL FOR CHEST PAIN 06/23/24 11:45 Morphine Sulfate 2 mg Q30M PRN IV FOR CHEST PAIN 06/23/24 11:45 Aspirin 81 mg DAILY PO 06/24/24 10:00 Enoxaparin Sodium (Lovenox) 90 mg DAILY SC 06/24/24 10:00 06/23/24 12:14 DC Enoxaparin Sodium (Lovenox) 90 mg DAILY SC 06/23/24 13:32 Review of Systems Constitutional: Generalized weakness Ears, Nose, & Throat: No symptom reported Eyes: No symptom reported Neurological: Dizziness Pulmonary/Respiratory: Shortness of breath Cardiovascular: No symptom reported Gastrointestinal: No symptom reported Genitourinary: No symptom reported Musculoskeletal: No symptom reported Skin: No symptom reported Psychiatric: No symptom reported Endocrine: No symptom reported Hemotologic/Lymphatic: No symptom reported Vital Signs Vital Signs Date Time Temp Pulse Resp B/P (MAP) Pulse Ox O2 Delivery O2 Flow Rate FiO2 06/23/24 12:00 57 06/23/24 12:00 13 115/54 (74) 100 06/23/24 11:40 Nasal Cannula* 4 36 06/23/24 10:00 98.3 98.3 Physical Exam General Appearance: Cooperative. Chronically ill. Obese. In no acute distress Head Exam: Normal inspection Neck Exam: Normal inspection. Non-tender. Normal alignment Pulmonary/Respiratory: Chest non-tender. Crackles to bilateral breath sounds Cardiovascular/Chest: Regular rate and rhythm. S1, S2. Paroxysmal atrial fibrillation with sick sinus syndrome. No JVD. Peripheral Pulses: 2+ Radial (R). 2+ Radial (L). 2+ Pedal (R). 2+ Pedal (L) Abdominal Exam: Normal bowel sounds. Soft. Nontender. No hepatospenomegaly. No masses Ankle Exam: Negative ankle edema Lower extremities: Negative lower extremity edema Neuro/Mental Status: A&O x2-3. Coherent somewhat poor historian Thoughts/Psych: Normal thought pattern. Appropriate mood and affect. Passive Appearance: In no acute distress Skin Exam: Normal inspection. Normal color. Warm. Dry Labs/Diagnostic Data Labs Test 06/23/24 11:15 06/23/24 08:00 Range/Units Troponin I High Sensitivity 1903 *H </=54 ng/L White Blood Count 7.1 4.4-10.8 10^3/uL Red Blood Count 2.95 L 4.5-5.90 10^6/uL Hemoglobin 9.8 L 13.5-17.5 g/dL Hematocrit 30.3 L 41.0-53.0 % Mean Corpuscular Volume 102.9 H 80.0-100.0 fL Mean Corpuscular Hemoglobin 33.2 H 28.0-32.0 pg Mean Corpuscular Hemoglobin Concent 32.3 32.0-36.0 g/dL Red Cell Distribution Width 19.1 H 11.8-14.3 % Platelet Count 161 140-450 10^3/uL Mean Platelet Volume 7.2 6.9-10.8 fL Neutrophils (%) (Auto) 80.6 H 37.0-80.0 % Lymphocytes (%) (Auto) 10.6 10.0-50.0 % Monocytes (%) (Auto) 7.2 0.0-12.0 % Eosinophils (%) (Auto) 1.1 0.0-7.0 % Basophils (%) (Auto) 0.5 0.0-2.0 % Neutrophils # (Auto) 5.8 1.6-8.6 10 ^3/uL Lymphocytes # (Auto) 0.8 0.4-5.4 10 ^3/uL Monocytes # (Auto) 0.5 0-1.3 10 ^3/uL Eosinophils # (Auto) 0.1 0-0.8 10 ^3/uL Basophils # (Auto) 0 0-0.2 10 ^3/uL Nucleated Red Blood Cells 0.1 % Sodium Level 138 136-145 mmol/L Potassium Level 5.1 3.5-5.1 mmol/L Chloride Level 97 L 98-107 mmol/L Carbon Dioxide Level 30 20-31 mmol/L Anion Gap 11 5-15 Blood Urea Nitrogen 36 H 9-23 mg/dL Creatinine 5.86 H 0.700-1.30 mg/dL Glomerular Filtration Rate Calc 9 >90 mL/min BUN/Creatinine Ratio 6.1 L 10.0-20.0 Serum Glucose 162 H 74-106 mg/dL Calcium Level 10.8 H 8.7-10.4 mg/dL Phosphorus Level 7.1 H 2.4-5.1 mg/dL Magnesium Level 2.5 1.6-2.6 mg/dL Assessment Non ST-elevation myocardial infarction Paroxysmal atrial fibrillation, Stage III, newly diagnosed Acute on chronic decompensated HFrEF, NYHA Class IV Ischemic/Biventricular heart failure with an EF of 25% Coronary artery disease status post CABG and PCI Chronic hypoxic respiratory failure with O2 dependence Pulmonary hypertension, moderate to severe ESRD on HD Hx of CVA Plan/Recommendation (Dr. Carmichael) Echocardiogram from 11/2023 revealed EF 25% with Grade II diastolic dysfunction. RVSP 57 mmHg. Introduce GDMT for CHF and uptitrate as tolerated. Hold off beta-blockers given SSS and mineralcorticoids given ESRD. Hold off on ant iarrhythmics at this time. [id number] Score 5, HAS-BLED 4. Initiate low-dose Eliquis therapy and continue Plavix therapy pending invasive cardiac procedures. There is history of CABG (1999) and PCI with stents x 3 (2014). Per , the patient underwent a cardiac catheterization and coronary angiogram w/o catheter based intervention given non-progressive CAD at [facility] on 09/2023. Given the patient's poor mentation, was offered to proceed with an automatic internal cardioverter defibrillator implantation. The patient presents with new onset paroxysmal atrial fibrillation, sick sinus syndrome, and poor LV function. She prefers a second opinion at [facility] and to hold off from invasive cardiac procedures at this facility. Case discussed with Dr. Carmichael who recommends transfer to [facility] for further evaluation. In the meantime, continue single antiplatelet therapy with Plavix and lipid-lowering agent. Continue Nephrology recommendations. Thank you for allowing us to participate in this patient's care. Please call if you have any questions or concerns. Critical care time: 50 min. This medical document was created using an electronic medical record system with voice recognition software and computerized dictation system. Although this document has been carefully reviewed, there might still be some phonetic and typographical errors. Occasional wrong-word or ``sound-alike substitutions may have occurred due to the inherent limitations of voice recognition software. These areas are purely typographical due to imperfections of the software programs and do not reflect any compromise in the patient's medical care. Please read the chart carefully and recognize, using context, where these substitutions have occurred. Plan discussed with: Patient, Spouse, Other NYHA Physical activity limitations: Class4(Severe)discomfort (w any activit,symptoms at rest) Date of Service: Jun 23, 2024 Billing Provider: PRERNA CARMICHAEL MD Cardiology Common Codes: 80203-YNAFDSUU CARE 30-74 MIN ÁNGELA SOLARES [facility] Jun 23, 2024 14:21
[2024-06-23] MEDS: InsuLIN REG 1unit/0.01ml Soln (100units/ml) SC SCH (16:00)
--- NOTE | 2024-06-23 16:00 | DVHSR ---
APPROVED REPORT EXAM: Two-dimensional and M-mode echocardiogram with Doppler and color Doppler. Blood Pressure: 115/54 mmHg INDICATION R/O ACS RISK FACTORS Height: 74, Weight: 211 DIMENSIONS LVDd4.4 (3.8-5.7cm)LA (2D)5.1 (1.9-4.0cm)Aortic Root3.9 (2.0-3.7cm) LVDs4.1 (2.5-4.0cm)LA (MM) (1.9-4.0cm)Aortic Cusp Exc1.3 (1.5-2.0cm) EF (%) 15.0 (55-70%)Rt. Atrium5.6 (1.9-4.0cm)Asc. Aorta cm Mitral Valve MitralMitral Stenosis A wavem/sMV Peak GR.47mmHg E/A ratio0.02D MVAcm2 Aortic Valve Aortic ValveAortic Stenosis V10.71m/Juan Daniel Mean GR.5mmHg V21.61m/Juan Daniel Peak GR.10mmHg LVOT Diameter2.3 (1.8-2.4cm)Doppler AVA1.83cm2 Pulmonic Valve V20.85m/s Tricuspid Valve TR Velocity2.15m/s [id number] Other Information Technically limited study due to body habitus. Patient laying flat on her back. Conclusion Technically very challenging study due to patient body habitus. Overall severely reduced left ventricular systolic function estimated ejection fraction 15%. There i s moderate to severe dilatation of the left ventricle. Severely reduced right ventricular systolic function. Slightly increased right ventricular systolic [id number] mm of mercury Normal biatrial size and dimension. No significant valve pathology was noted. No significant pericardial effusion was noted.
[2024-06-23] MEDS: CLOPIDOGREL BISULFATE 75 MG TAB PO ONE (16:15)
[2024-06-23] MEDS: HYDROcodone-ACET 5/325MG TAB PO PRN (16:17)
[2024-06-23] MEDS: ACCU-CHEK COMFORT CURVE STRIP VI SCH (16:18)
--- NOTE | 2024-06-23 16:40 | DVHINCON2 ---
Date of service: Jun 23, 2024 Referring Physician Mariah EDWARDS Reason for Consultation End-stage renal disease. History of Present Illness 79-year-old patient with significant history of end-stage renal disease on hemodialysis Saturday with last dialysis yesterday UF 2.4 L, CAD status post CABG, CHF, diabetes type 2, atrial fibrillation, hypertension, anemia, BPH, history of CVA who presents to the hospital with hypotension associated with shortness of breath and generalized weakness for one day. The patient usually is on 2 L via nasal cannula currently 4 L nasal cannula saturating 95%. At home patient's blood pressure was 80/51 and heart rate was 44. EKG reveals sick sinus syndrome with AFib rate controlled and bradycardia in the 40s. Evaluation in the ER revealed severely elevated troponins of 1909 over as per L and he was admitted and Cardiology consulted. Chest x-ray shows mild pulmonary congestion. Past Medical History Diabetes type 2, CHF, CAD status post CABG, end-stage renal disease on hemodialysis Saturday, hyperlipidemia, cerebrovascular disease. Past Surgical History Dialysis access creation. CABG. Allergies: Coded Allergies: Atenolol (Unverified Allergy, Severe, 10/22/14) Benzonatate (Unverified Allergy, Severe, 10/22/14) Fosinopril (Unverified Allergy, Severe, 10/22/14) Home Meds Reported Medications Diclofenac Sodium (Topical) (Diclofenac Sodium) 1 % Gel, 1 % TD, GEL 11/29/23 Albuterol Sulfate (Albuterol Sulfate) 2 Mg Tab, 2 MG PO Q6HP PRN for SHORTNESS OF BREATH, MG 11/29/23 Tiotropium [place] Monohydrate (Spiriva Respimat) 2.5 Mcg/Act Spr, 2.5 MCG IN, SPRAY 11/29/23 Fluticasone-Salmeterol (Wixela Inhub 500-50 Mcg/Dose) 1 Aer Aer, 1 AER IN, AER 11/29/23 Gabapentin (Gabapentin) 300 Mg Cap, 300 MG PO DAILY for 30 Days, MG 11/29/23 B-Complex W/ C & Folic Acid (Renal Vitamin 0.8 mg) 1 Tab Tab, 1 TAB PO HS, TAB 11/29/23 Clopidogrel Bisulfate (CLOPIDOGREL) 75 Mg Tab, 75 MG PO DAILY for 30 Days, MG 11/29/23 Tamsulosin Hcl (Tamsulosin Hcl) 0.4 Mg Cap, 0.4 MG PO BID for 30 Days, MG 11/29/23 Sevelamer Carbonate (Renvela) 800 Mg Tab, 1600 MG PO TIDWMEALS, TAB 11/29/23 Losartan Potassium (Losartan Potassium) 50 Mg Tab, 50 MG PO DAILY for 30 Days, MG 11/29/23 Atorvastatin Calcium (ATORVASTATIN CALCIUM) 80 Mg Tab, 1 TAB PO DAILY, #30 TAB 5 Refills 11/29/23 Famotidine (Famotidine) 20 Mg Tab, 10 MG PO HS for 30 Days, MG 11/29/23 Balsalazide Disodium (Balsalazide Disodium) 750 Mg Cap, 750 MG PO BID, CAP 11/29/23 Albuterol Sulfate (Albuterol Sulfate) 0.083 % Neb, 1 VIAL NEB Q4HPRN, VIAL 10/22/14 Hydrocodone-Acetaminophen (Hydrocodone/Acetaminophen) 1 Tab Tab, 1 TAB PO TID PRN for pain, TAB 10/22/14 Amitriptyline Hcl (Amitriptyline Hcl) 100 Mg Tab, 100 MG PO QPM, TAB 10/22/14 Rosuvastatin Calcium (Crestor) 20 Mg Tab, 1 TAB PO DAILY, TAB 10/22/14 Montelukast Sodium (MONTELUKAST SODIUM) 10 Mg Tab, 1 TAB PO DAILY, TAB 10/22/14 Terazosin Hcl (Terazosin Hcl) 2 Mg Cap, 1 CAP PO QPM, CAP 10/22/14 Aspirin (ASPIRIN 81) 81 Mg Tab, 81 MG OR DAILY, TAB 10/22/14 Mesalamine (ASACOL) 400 Mg Tab, 800 MG OR TID, TAB 10/22/14 Gabapentin (Gabapentin) 600 Mg Tab, 1 TAB PO TID, TAB 10/22/14 Cholecalciferol (VITAMIN D) 400 Unit Boni, 1000 UNIT PO DAILY, BONI 10/22/14 Magnesium Oxide (Mg Supplement (MAGNESIUM) 400 Mg Cap, 400 MG PO DAILY, CAP 10/22/14 Potassium Chloride (POTASSIUM CHLORIDE CR) 10 Meq Tb, 1 TAB PO DAILY, TAB 10/22/14 Cyanocobalamin (Vitamin B 12) 500 Mcg Gavin, 1000 MCG PO EOD, GAVIN 10/22/14 Calcitriol (Calcitriol) 0.5 Mcg Cap, 1 CAP PO DAILY, CAP 10/22/14 Chlorthalidone (Chlorthalidone) 25 Mg Tab, 25 MG PO QAM, TAB 10/22/14 Ranitidine Hcl (Ranitidine Hcl) 300 Mg Cap, 1 CAP PO DAILY, CAP 10/22/14 Ranitidine Hcl (Ranitidine Acid [employer] Specialist) Ar 75MG Tab, 1 75MG PO, TAB 10/22/14 Diltiazem Hcl (Diltiazem Cd) 300 Mg Cap, 300 MG PO QAM, CAP 10/22/14 Losartan Potassium (Losartan Potassium) 100 Mg Tab, 1 TAB PO DAILY, TAB 10/22/14 [insulin NPH] No Conflict Check, 28 UNITS QPM 10/22/14 [insulin NPH] No Conflict Check, 116 UNIT QAM 10/22/14 Current Medications Current Medications Medications (Trade) Dose Ordered Sig/Ciara Route PRN Reason Start Time Stop Time Status Last Admin Sodium Chloride (Saline Lock Ns) 10 ml Q8HR IV 06/23/24 14:00 06/23/24 14:04 Acetaminophen/ Hydrocodone Bitart ([place] 5/325MG Tab) 1 tab Q4HP PRN PO MODERATE PAIN (4-6 PAIN SCALE) 06/23/24 11:45 06/23/24 16:17 Ondansetron HCl (Zofran) 4 mg Q4HP PRN IV NAUSEA / VOMITING 06/23/24 11:45 Docusate Sodium (Colace Capsule) 100 mg BIDPRN PRN PO FOR CONSTIPATION 06/23/24 11:45 Acetaminophen (Tylenol Tablet) 650 mg Q6HP PRN PO PAIN SCALE 1-3 OR TEMP>100.4 06/23/24 11:45 Morphine Sulfate 2 mg Q4HPRN PRN IV SEVERE PAIN (7-10 PAIN SCALE) 06/23/24 11:45 06/23/24 13:57 Nitroglycerin (Ntrostat Sublingual) 0.4 mg Q5MINP PRN SL FOR CHEST PAIN 06/23/24 11:45 Morphine Sulfate 2 mg Q30M PRN IV FOR CHEST PAIN 06/23/24 11:45 Aspirin 81 mg DAILY PO 06/24/24 10:00 Enoxaparin Sodium (Lovenox) 90 mg DAILY SC 06/24/24 10:00 06/23/24 12:14 DC Enoxaparin Sodium (Lovenox) 90 mg DAILY SC 06/23/24 13:32 06/23/24 13:58 Famotidine (Pepcid Tablet) 10 mg HS PO 06/23/24 22:00 Gabapentin (Neurontin Capsule) 300 mg DAILY PO 06/24/24 10:00 Tamsulosin HCl (Flomax) 0.4 mg BID PO 06/23/24 22:00 Patient Own Medication 2 mg Q6HP PRN PO SHORTNESS OF BREATH 06/23/24 14:00 Atorvastatin Calcium (Lipitor) 80 mg HS PO 06/23/24 22:00 06/23/24 15:47 DC Multivit/Ca Carb/ B Cmplx/FA/Prenat (Nephro-Dang Tablet) 1 tab DAILY PO 06/24/24 10:00 Patient Own Medication 750 mg BID PO 06/23/24 22:00 Sevelamer HCl (Renagel) 1,600 mg TIDWMEALS PO 06/23/24 18:00 Diagnostic Test (Pha) (Accu-Chek Comfort Curve T) 1 strip IQ4HR 06/23/24 16:00 06/23/24 16:18 Insulin Human Regular (InsuLIN R) IQ4HR SC 06/23/24 16:00 Dextrose 50 ml UD PRN IV Blood Sugar LESS THAN 60 06/23/24 14:00 Clopidogrel Bisulfate (Plavix) 75 mg DAILY PO 06/24/24 10:00 Atorvastatin Calcium (Lipitor) 40 mg HS PO 06/23/24 22:00 Family History: Patient reports no known family medical history. Family History Patient does not remember family history. Social History Patient lives with his denies any smoking alcohol or drug abuse. Review of Systems HEENT: Oral mucosa dry Neck no JVD Cardiovascular: Chest discomfort no orthopnea or PND Respiratory: + mild shortness of breath Gastrointestinal: Denies for nausea vomiting Musculoskeletal: Denies myalgias + back pain Neurological: Denies focal weakness Dermatological: Denies any rash The rest of the review of systems were reviewed pertinent positives and pertinent negatives are as per HPI up to 12 points review of systems H&P Exam Vital Signs/I&O Vital Sign Date Time Temp Pulse Resp B/P (MAP) Pulse Ox O2 Delivery O2 Flow Rate FiO2 06/23/24 13:57 57 16 108/55 06/23/24 13:30 97.2 94 97.2 06/23/24 11:40 Nasal Cannula* 4 36 Physical Exam HEENT: No evidence of JVD, no oral ulcers. Pulmonary: Diminished auscultation bilaterally Cardiovascular S1-S2, no S3 or S4 Abdomen: Bowel sounds positive, soft no rebound tenderness Skin: No rash Neurological: Alert, oriented, no focal weakness Labs/Diagnostic Data Labs/Diagnostic Data Laboratory Tests Test 06/23/24 16:22 06/23/24 16:06 06/23/24 11:15 06/23/24 09:16 Range/Units POC Glucose 53 L 70-106 mg/dl Troponin I High Sensitivity 5706 *H 1903 *H 1852 *H </=54 ng/L Test 06/23/24 08:00 Range/Units White Blood Count 7.1 4.4-10.8 10^3/uL Red Blood Count 2.95 L 4.5-5.90 10^6/uL Hemoglobin 9.8 L 13.5-17.5 g/dL Hematocrit 30.3 L 41.0-53.0 % Mean Corpuscular Volume 102.9 H 80.0-100.0 fL Mean Corpuscular Hemoglobin 33.2 H 28.0-32.0 pg Mean Corpuscular Hemoglobin Concent 32.3 32.0-36.0 g/dL Red Cell Distribution Width 19.1 H 11.8-14.3 % Platelet Count 161 140-450 10^3/uL Mean Platelet Volume 7.2 6.9-10.8 fL Neutrophils (%) (Auto) 80.6 H 37.0-80.0 % Lymphocytes (%) (Auto) 10.6 10.0-50.0 % Monocytes (%) (Auto) 7.2 0.0-12.0 % Eosinophils (%) (Auto) 1.1 0.0-7.0 % Basophils (%) (Auto) 0.5 0.0-2.0 % Neutrophils # (Auto) 5.8 1.6-8.6 10 ^3/uL Lymphocytes # (Auto) 0.8 0.4-5.4 10 ^3/uL Monocytes # (Auto) 0.5 0-1.3 10 ^3/uL Eosinophils # (Auto) 0.1 0-0.8 10 ^3/uL Basophils # (Auto) 0 0-0.2 10 ^3/uL Nucleated Red Blood Cells 0.1 % Sodium Level 138 136-145 mmol/L Potassium Level 5.1 3.5-5.1 mmol/L Chloride Level 97 L 98-107 mmol/L Carbon Dioxide Level 30 20-31 mmol/L Anion Gap 11 5-15 Blood Urea Nitrogen 36 H 9-23 mg/dL Creatinine 5.86 H 0.700-1.30 mg/dL Glomerular Filtration Rate Calc 9 >90 mL/min BUN/Creatinine Ratio 6.1 L 10.0-20.0 Serum Glucose 162 H 74-106 mg/dL Calcium Level 10.8 H 8.7-10.4 mg/dL Phosphorus Level 7.1 H 2.4-5.1 mg/dL Magnesium Level 2.5 1.6-2.6 mg/dL Troponin I High Sensitivity 1716 *H </=54 ng/L Chest x-ray mild pulmonary basilar congestion. Assessment Assessment: 1. End-stage renal disease on hemodialysis Saturday. 2. NSTEMI 3. Acute on chronic hypoxic respiratory failure 4. Acute systolic CHF exacerbation 5. Diabetes type 2 6. Anemia 7. Sick sinus syndrome 8. Confusion 9. Intractable back pain. Plan: Continue hemodialysis in inpatient. Plan for early AM HD to attempt UF. BP has been low down to 70's currently low 100's. Fluid restriction Less than 1 L per day. Emliio for goal hemoglobin 10-11 grams/deciliter Avoid beta-blockers Judicious use of narcotics as narcotics can cause severe hypotension in dialysis patients. Nephrology consult appreciated, oxygen supplementation. Family prefers to transfer to higher levels of care. Thank you very much for allowing us to participate in the care of this patient. Plan discussed with: Patient, Spouse, Son GÉNESIS SIGALAELMER RODRIGUEZ MD Jun 23, 2024 16:40
[2024-06-23 17:00] VITALS: BP 107/51; PULSE 54; RESP 18; TEMP 98; O2SAT 95
[2024-06-23] MEDS: SEVELAMER 800 MG TAB PO SCH (18:10)
[2024-06-23 20:00] VITALS: PULSE 63; PULSE 66; RESP 17; O2SAT 95
[2024-06-23 20:55] VITALS: BP 126/71; PULSE 63; RESP 17; TEMP 97.5; O2SAT 91
[2024-06-23] MEDS: ATORVASTATIN 20 MG TAB PO SCH (21:48)
[2024-06-23] MEDS: FAMOTIDINE 20 MG TAB PO SCH (21:48)
[2024-06-23] MEDS ORDERED: ATORVASTATIN 20 MG TAB PO SCH (22:00)
[2024-06-23] MEDS ORDERED: TAMSULOSIN HYDROCHLORIDE 0.4 MG CAP PO SCH (22:00)
[2024-06-23] MEDS: Balsalazide Disodium 750 MG CAPSULE PO SCH (22:00)
[2024-06-24] VITALS (7 sets, daily range): BP systolic 115–139; BP diastolic 21–66; PULSE 52–74; RESP 11–20; TEMP 97.3–98.1; O2SAT 87–96
[2024-06-24] MEDS ORDERED: ALBUTEROL MEDNEB 2.5 mg/3ml NEB NEB PRN (00:45)
[2024-06-24 01:20] LABS: Base Excess -6.2 mmol/L (-2.0-3.0)
[2024-06-24] MEDS ORDERED: DOPamine 1600MCG/ML D5W 250 ML IV ONE (05:14)
[2024-06-24] MEDS ORDERED: MIDAZOLAM DRIP 50 mg/50mL 50 ML IV ONE (05:14)
[2024-06-24] MEDS ORDERED: DOPamine 1600MCG/ML D5W 250 ML IV SCH (05:30)
[2024-06-24] MEDS ORDERED: MIDAZOLAM DRIP 50 mg/50mL 50 ML IV SCH (05:30)
[2024-06-24] MEDS ORDERED: SODIUM CHL 0.9% 1000 ML BAG XX ONE (07:00)
--- NOTE | 2024-06-24 07:10 | PRN ---
ANDRE MOROCHO 06/24/24 0710: Misceleneous Note Note Note Declaration Summary: Notified by the nurse that the patient was in asystole and unresponsive. Received a call from Alexander Pal PATIENT ACCESS SPECIALIST, hospitalist chronic disease epidemiologist. saw patient at bedside and evaluated. Detailed bedside examination revealed: -The patient was unresponsive to verbal or painful stimuli. -Spontaneious Heart and lung sounds are absent. -No spontaneous cardiac or respiratory activity noted over 5 minutes. -No corneal pupillary reflex present while checked twice. -Pupils are fixed and dilated over the examination period. The patient was pronounced clinically at 6:46 AM of date- by Andre Morocho MD, resident. Patient's family and patient's nurse were updated by the healthcare team. Appropriate and empathic condolences were provided to the patient's dear ones. DUSTY TREVIÑO MD 06/24/24 0914: ANDRE MOROCHO Jun 24, 2024 07:10 DUSTY TREVIÑO MD Jun 24, 2024 09:14
--- NOTE | 2024-06-24 07:27 | RESUS ---
CODE ASSIST ASSESSSMENT Initial Information Code Assist Date: Jun 24, 2024 Code Assist Time: 01:01 Location of Arrest: [facility] Room # 247B Provider Name SON VETERINARY VIROLOGIST Time Notified: 01:01 Time PMD returned call: 01:20 Situation Staff concerned/worried, speci: HR <40 Situation comment: Patient yelled out stating that he can't breath. I rushed in because patient's heart rate was in the 30's and sustained there. patient's 02 was in the 70's. I called code assist. I tried to sit patient up but he became unresponsive for a moment and his eyes rolled back. Code team found a pulse. Patient vitals were 103/34. MAP 85 and heart rate was 34. Patient was given 1mg Atropine at 0110. Patient was given Zofran 4mg/2ml at 0120. Blood sugar was 86. Patient was stabilized and moved to [facility] Background Background: 79 YOM with pmHx of HTN, COPD, CAD, CHF, DM, GERD, Afib, ESRD on HD M// at [facility] and CABG who presents to the ED on 06/23 with low blood pressure, shortness of breath, and weakness x 1 day. Patient reports that he is on home oxygen of 2LNC and when his (Brittany) took his BP it was low this morning 80/51 with a pulse of 44. She states that his baseline is SBPs 150s and pulse of 70s. She states his O2 at home was functioning and on. Patient reports he fell about 1 month ago when he was attempting to get up from his recliner and grabbed his FWW but fell to his right side and hit the back of his head on the floor. Negative LOC and was hospitalized at [facility]. Patient's reported that CT head and chest were all negative. Assessment Temperature (Fahrenheit): 97.3 Blood Pressure Systolic: 115 Blood Pressure Diastolic: 41 Respiratory Rate: 17 O2 Sat by Pulse Oximetry: 96 Bedside Blood Glucose: 86 Assessment comment: PT AAOX4, DENIES CHEST PAIN CM SB 34, C/O OF SOB PLACED ON 100% NRB Recommendations/Interventions Medications and Responses : ADULT Medications Given: ATROPINE 1 Route of Administration: IV Medication Comment: ZOFRAN 4MG IV Heart Rate: 34 EKG Rhythm: Sinus Bradycardia Blood Pressure Systolic: 103 Blood Pressure Diastolic: 34 Respiratory Rate: 20 O2 Sat by Pulse Oximetry: 99 Procedures: Accu check, ABG, Cardiac Monitoring Outcome Outcome: Transfer to Stepdown Follow up Report Follow up Report SEE CODE NAYELY Team Members Team Members SON VETERINARY VIROLOGIST, GODFREY RN HS, SHARON RN, SHIRIN Zhang RN, POONAM PHYSICAL FITNESS TRAINER, LENIN RN, ADA RT, RASHAD RT. GODFREY KRAUSE Jun 24, 2024 07:27
--- NOTE | 2024-06-24 07:52 | RESUS ---
CODE BLUE ASSESSSMENT History of Events History of Events: PT HAD BEEN TRANSFERRED TO TO [facility] TONIGHT DUE TO LOW MA RATE, HEART RATE STAYS AT 40'S, BLOOD PRESSURE 116/45, INFORMED HOSPITALIST SON EDWARDS. 0504 PT WENT ASYSTOLE CODE NAYELY CALLED. Initial Information Date: Jun 24, 2024 Time: 05:04 Location of Arrest: [facility] Arrest Witnessed: Yes CPR started initial time: 05:04 CPR started by whom: Hospital Staff Last seen well: 0503 Pre-Hospital Care: ACLS Type of arrest: Cardiac, Respiratory, Adult, Witnessed Spontaneous Respirations: No Pulse Present: No Monitoring: ECG, Pulse Oximetry, Apnea, Telemetry Crash Cart Opened and Supplies: Yes Airway Ventilation Breathing at Onset: Apneic O2 Sat by Pulse Oximetry: 0 Oxygen Delivery Method: Ambu-Bag Oxygen 100% NRB Time of first Assisted Ventila: 05:10 Artificial Ventilation: Bag/Endo tube Intubation Size: 8.0 cuffed Intubated by: SON EDWARDS Intubation Attempts: 1 Intubated orally: Yes Intubated Nasaly: No Tube secured at: 24 Cricoid pressure done: No CO2 indicator used: Yes Confirmation: Auscultation, Exhaled CO2 Suctioning (Oral/Tracheal): No Circulation Circulation : Time: 05:04 Pulse Rate (adult): 0 Blood Pressure Systolic: 0 Blood Pressure Diastolic: 0 Temperature (Fahrenheit): 97.3 Defibrillation Defbrillation : Time Defibrillator Applied: 05:10 EKG Rhythm: V-Tachycardia Compressions: Device Compressions Hold/Resume: 0510 Time Defibrillator Shocked Pt.: 05:10 Defib. Joules: 120 EKG Rhythm: PEA Procedure - IV Procedure - IV #1: IV Side: Right IV Location: Hand IV Catheter Type: Saline Lock IV Placed: In Hospital (PLACED PRIOR TO CODE) IV Gauge: 20 IV Line Care: Saline Flush Procedure - IV #2: IV Side: Right IV Location: Upper Arm Anterior IV Catheter Type: Saline Lock IV Placed: In Hospital IV Placed by PLACED PRIOR TO CODE IV Gauge: 22 IV Line Care: Saline Flush Medications & Response Medications and Responses #1: Medication Time: 05:05 ADULT Medications Given ADULT: Epinephrine 1 mg Route of Administration: IV Heart Rate: 0 EKG Rhythm: Asystole Blood Pressure Systolic: 0 Blood Pressure Diastolic: 0 Respiratory Rate: 0 O2 Sat by Pulse Oximetry: 0 EKG Rhythm: PEA Comment NO PULSE 0508 Medications and Responses #2: Medication Time: 05:08 ADULT Medications Given ADULT: Epinephrine 1 mg, Sodium Bacarbinate 50 meq Route of Administration: IV Heart Rate: 0 EKG Rhythm: PEA Blood Pressure Systolic: 0 Blood Pressure Diastolic: 0 Respiratory Rate: 0 O2 Sat by Pulse Oximetry: 0 EKG Rhythm: PEA Comment PULSE CHECK AT 0511 ROSC BP 156/120 HR 95 Pacing Pacer Pads Applied and Pacing: Yes Nurses Notes [place] Coma Scale Eye Opening: None (1) [place] Coma Scale Verbal: None (1) Nuz[place] Coma Scale Motor: None (1) Glascow Total: 3 Pupil Reaction: Non Reactive Bedside Blood Glucose: 85 EKG Rhythm: Sinus Rhythm Time Code Ended Time Code Ended: 05:10 Post Arrest Status: Ventilated Outcome of code: Successful Family notified: Yes Attending called: Yes Code Team Present: SON SQUAD LEADER, GODFREY RN HS, SHARON CLINICAL PHARMACY MANAGER CHARGE, SHIRIN Zhang RN, MARQUITA RN, UNA RN, ADA RT, JANIS RT, RASHAD RT Post Resuscitation Neurologica Pupil Size: 3 ROSC Time of ROSC: 05:10 Pt Meets Criteria for Therapeu: No Therapeutic Hyperthermia Start: No GODFREY KRAUSE Jun 24, 2024 07:52
[2024-06-24] MEDS ORDERED: PATIENTS OWN MEDICATION PO SCH (08:00)
[2024-06-24] MEDS ORDERED: ATROPINE SULF 1 MG/10ml SYR IM ONE (09:54)
[2024-06-24] MEDS ORDERED: SODIUM BICARB 8.4% 50Meq/50ml SYR Vial IV ONE (09:54)
[2024-06-24] MEDS ORDERED: GABAPENTIN 300 MG CAP PO SCH (10:00)
[2024-06-24] MEDS ORDERED: ENOXAPARIN SOD 100 MG/1 ML SYRINGE SC SCH (10:00)
[2024-06-24] MEDS ORDERED: B-COMPLEX W/ C & FOLIC ACID(NEPHROVITE TAB) PO SCH (10:00)
[2024-06-24] MEDS ORDERED: CLOPIDOGREL BISULFATE 75 MG TAB PO SCH (10:00)
[2024-06-24] MEDS ORDERED: ASPirin 81 mg TAB PO SCH (10:00)
[2024-06-24] MEDS ORDERED: EPOETIN ALFA-EPBX 4,000 UNIT/ML VIAL SC ONE (21:00)
--- NOTE | 2024-06-26 14:38 | ECG ---
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
== END 2024-06-24 09:55 ==
LOC: EDBD 07:26 → ER 07:26 → TELE 11:38 → ER 11:52 → TELE-EAST 13:29 → ICU CENTRL 06-24 02:00 → DOU IN ICU 06-24 02:02
PROC: 5A12012 Performance of Cardiac Output, Single, Manual (ICD-10-PCS; principal; 2024-06-24)
PROC: 5A2204Z Restoration of Cardiac Rhythm, Single (ICD-10-PCS; 2024-06-24)
PROC: 0BH17EZ Insertion of Endotracheal Airway into Trachea, Via Natural or Artificial Opening (ICD-10-PCS; 2024-06-24)
DX: I13.2 Hypertensive heart and chronic kidney disease with heart failure and with stage 5 chronic kidney disease, or end stage renal disease (principal); I50.43 Acute on chronic combined systolic (congestive) and diastolic (congestive) heart failure; I21.A1 Myocardial infarction type 2; J96.21 Acute and chronic respiratory failure with hypoxia; N18.6 End stage renal disease; N17.9 Acute kidney failure, unspecified; J44.1 Chronic obstructive pulmonary disease with (acute) exacerbation; Z66 Do not resuscitate; D64.9 Anemia, unspecified; E11.22 Type 2 diabetes mellitus with diabetic chronic kidney disease; I27.20 Pulmonary hypertension, unspecified; N40.0 Benign prostatic hyperplasia without lower urinary tract symptoms; E78.5 Hyperlipidemia, unspecified; E66.9 Obesity, unspecified; M54.9 Dorsalgia, unspecified; I48.0 Paroxysmal atrial fibrillation; I49.5 Sick sinus syndrome; I25.10 Atherosclerotic heart disease of native coronary artery without angina pectoris; K21.9 Gastro-esophageal reflux disease without esophagitis; Z99.81 Dependence on supplemental oxygen; Z99.2 Dependence on renal dialysis; Z95.5 Presence of coronary angioplasty implant and graft; Z95.1 Presence of aortocoronary bypass graft; Z87.891 Personal history of nicotine dependence; Z86.73 Personal history of transient ischemic attack (TIA), and cerebral infarction without residual deficits; Z79.899 Other long term (current) drug therapy; Z79.891 Long term (current) use of opiate analgesic; Z79.82 Long term (current) use of aspirin; Z68.28 Body mass index [BMI] 28.0-28.9, adult; Z88.8 Allergy status to other drugs, medicaments and biological substances
CPT/HCPCS: 36415; 36600; 71045; 80048; 82805; 82962; 83735; 84100; 84484; 85025; 87070; 87081; 87205; 92950; 93005; 93306; 94002; 94640; 99291; G0378; J2405